=== PATIENT | female | born 1975 | race Caucasian/White ===

== ENCOUNTER 2019-08-30 14:57 | Emergency (ER) | payer OTHER ==
[2019-08-30 15:24] VITALS: BP 113/72
--- NOTE | 2019-08-30 16:04 | UC ---
Skin Complaint HPI - HPI Summary HPI Summary: 44 year old female with no PMH, + for allergies, seasonal, mild, presents with 3 weeks of irritated, red, itchy skin on b/l eyelids. Attempted to treat with triple antibiotic ointment, however no improvement and increased swelling, redness, itchy x 2-3 days. no vision changes, no pain with eye movements/ light changes. no prior occurences, no other areas of rash/ irritation. no dry eye, watery eye. no painful eye. - History of Current Complaint Chief Complaint: UCEye Time Seen by Provider: 08/30/19 15:33 Stated Complaint: EYE AREA IRRITATION Hx Obtained From: Patient Hx Last Menstrual Period: 08/26/19 ?: No Onset/Duration: Sudden Onset - worst past 2-3 day s Onset Severity: Mild Current Severity: None Pain Intensity: 0 Pain Scale Used: 0-10 Numeric Character: Swelling, Pruritus, Redness, Raised Aggravating Factor(s): Nothing Alleviating Factor(s): Nothing Associated Signs & Symptoms: Positive: Red Streaks. Negative: Difficulty Breathing, Fever, Chills, Cough, Wheezing, Lightheadedness, Bruising - Allergy/Home Medications Allergies/Adverse Reactions: Allergies Allergy/AdvReac Type Severity Reaction Status Date / Time No Known Allergies Allergy Verified 08/30/19 15:19 Home Medications: Home Medications Clotrimazole 1% CREAM* [Clotrimazole 1%*] 1 applic TOPICAL BEDTIME 7 Days #1 tube 08/30/19 [Rx] Hydrocortisone 0.5% OINT* 1 applic TOPICAL BID #1 tube 08/30/19 [Rx] PMH/Surg Hx/FS Hx/Imm Hx Previously Healthy: Yes - Surgical History Surgical History: Yes Surgery Procedure, Year, and Place: BIOPSY - Lt BREAST - BENIGN - Family History Known Family History: Positive: Non-Contributory - Social History Occupation: Employed Full-time Alcohol Use: Weekly Substance Use Type: None Smoking Status (MU): Never Smoked Tobacco Review of Systems All Other Systems Reviewed And Are Negative: Yes Constitutional: Positive: Negative Skin: Positive: Rash, Other - itch b/l eyelid ENT: Positive: Negative Neurological/Mental Status: Positive: Negative Psychological: Positive: Negative Is Patient Immunocompromised?: No Physical Exam Triage Information Reviewed: Yes Appearance: Well-Appearing, No Pain Distress, Well-Nourished Vital Signs: Initial Vital Signs Temp 99.7 F 08/30/19 15:20 Pulse 84 08/30/19 15:20 Resp 18 08/30/19 15:20 BP 113/72 08/30/19 15:20 Pulse Ox 98 08/30/19 15:20 Vital Signs Reviewed: Yes Eyes: Positive: Conjunctiva Clear, Other: - EMOI=, PERRLA b/l without pain ENT: Positive: Hearing grossly normal Neck: Positive: Supple, Nontender, No Lymphadenopathy. Negative: Nuchal Rigidity, Enlarged Nodes @ Neurological Exam: Normal Psychological Exam: Normal Skin: Positive: Other - mild erythema b/l eyelids without blepharitis, no drianage noted b/l, + increased erythema increase, + mild edema b/l eyelids. Course/Dx - Course Course Of Treatment: Dermatitis, b/l eye lid- Combination treatment of yeast medication and steroid - Steroid medication twice daily, use sparingly, avoid getting into eye - Clotrimazole daily at bedtime, avoid getting into eye. - Follow up with dermatology if no improvement within 2-3 days or if symptoms worsen. - cool compresses as needed for inflammation, irritation - GO to ER with vision changes Seen by DR. Rose - Diagnoses Provider Diagnosis: Dermatitis of eyelid Discharge ED - Sign-Out/Discharge Documenting (check all that apply): Patient Departure All imaging exams completed and their final reports reviewed: No Studies - Discharge Plan Condition: Good Disposition: HOME Prescriptions: Clotrimazole 1% CREAM* [Clotrimazole 1%*] 1 applic TOPICAL BEDTIME 7 Days #1 tube Hydrocortisone 0.5% OINT* 1 applic TOPICAL BID #1 tube Patient Education Materials: Skin Yeast Infection (ED), Dermatitis (ED) Referrals: No Primary Care Phys,NOPCP [Primary Care Provider] - Susan Stevenson [Medical Doctor] - Additional Instructions: Combination treatment of yeast medication and steroid - Steroid medication twice daily, use sparingly, avoid getting into eye - Clotrimazole daily at bedtime, avoid getting into eye. - Follow up with dermatology if no improvement within 2-3 days or if symptoms worsen. - cool compresses as needed for inflammation, irritation - GO to ER with vision changes - Billing Disposition and Condition Condition: GOOD Disposition: Home
== END 2019-08-30 16:15 | disposition home or self-care (01) ==
LOC: UCEAST 14:57
DX: H01.8 Other specified inflammations of eyelid (principal)
CPT/HCPCS: 99212; G0463